=== PATIENT | female | born 1990 | race African-American/Black ===

== ENCOUNTER 2017-08-12 12:44 | Emergency (ER) | payer BC ==
[~2017-08-12] VITALS: Ht 165.1 cm; Wt 74.8 kg
--- NOTE | 2017-08-12 13:06 | Emergency Room Report ---
History of Present Illness General Chief Complaint: Laceration Source: Patient Present Illness HPI 27-year-old female presents to the emergency department for previously amputated left index finger. Patient states injury occurred at work in April. Patient states she is pain which is 7/10 in severity with scabbing. Patient states that she is here to be evaluated by plastic surgery for continued wound management. She has a history of previous attempted reattachment of the amputated digit which did not taken there was dehiscence which required surgical amputation at the PIP joint of the left index finger. Pt. has been having difficulty bending the affected finger. denies erythema, fevers , chills , or discharge. Allergies: Coded Allergies: No Known Allergies (Unverified , 08/12/17) Patient History Past Medical History: see triage record Past Surgical History: none Pertinent Family History: none Last Menstrual Period: 07/09/17 Now: No Reviewed Nursing Documentation: PMH: Agreed, PSxH: Agreed Nursing Documentation-PMH Past Medical History: No Stated History Review of Systems All Other Systems: negative except mentioned in HPI Physical Exam Vital Signs Date Time Temp Pulse Resp B/P (MAP) Pulse Ox O2 Delivery O2 Flow Rate FiO2 08/12/17 13:02 98.1 81 18 130/92 98 Room Air Sp02 EP Interpretation: reviewed, normal General Appearance: normal inspection, well appearing, no apparent distress, alert, non-toxic Head: normocephalic Respiratory: lungs clear, no respiratory distress Cardiovascular #1: regular rate, rhythm, normal capillary refill Musculoskeletal: other - limited ROM of the left index finger, finger has amputation at the PIP joint. ealed surgical amputation of the left index finger with eschar/scab noted, no evidence of infection at this time. Skin: normal color, warm/dry, well hydrated, wd healing/no infection noted Medical Decision Making PA Attestation Dr. sanders is my supervising Physician whom patient management has been discussed with. Diagnostic Impression: Primary Impression: Encounter for post surgical wound check ER Course 27-year-old female presents to the emergency department for previously amputated left index finger. Patient states injury occurred at work in April. Patient states she is pain which is 7/10 in severity with scabbing. Patient states that she is here to be evaluated by plastic surgery for continued wound management. She has a history of previous attempted reattachment of the amputated digit which did not taken there was dehiscence which required surgical amputation at the PIP joint of the left index finger. Pt. has been having difficulty bending the affected finger. denies erythema, fevers , chills , or discharge. Ddx considered but are not limited to tendon injury, cellulitis,dehiscence just to name a few. Vital signs: are WNL, pt. is afebrile H&PE are most consistent with: healed surgical amputation of the left index finger with eschar/scab noted, no evidence of infection at this time. ORDERS: none required at this time, the diagnosis is clinical ED INTERVENTIONS: - Pt. was evaluated and treated by Dr. Hamm --- Lidocaine 1% with EPI - ordered for Dr. Hamm --- Santyl Topical Cream - ordered for Dr. Hamm. DISCHARGE: At this time pt. is stable for d/c to home, To follow up with Plastic Surgeon Dr. Hamm in 1 week. . Will provide printed patient care instructions, and any necessary prescriptions. Care plan and follow up instructions have been discussed with the patient prior to discharge. Last Vital Signs Date Time Temp Pulse Resp B/P (MAP) Pulse Ox O2 Delivery O2 Flow Rate FiO2 08/12/17 13:02 98.1 81 18 130/92 98 Room Air Disposition: HOME, SELF-CARE Condition: Stable Patient Instructions: Wound Care Additional Instructions: Take medications as directed. Follow up with your Plastic Surgeon Return sooner to ED if new symptoms occur, or current symptoms become worse. - Please note that this Emergency Department Report was dictated using [employer] sales [employer] technology software, occasionally this can lead to erroneous entry secondary to interpretation by the dictation equipment. Paulina Roberts Aug 12, 2017 13:06
[2017-08-12] MEDS ORDERED: Lidocaine 1% 10mg/ml/Epi 0.005mg/ml 30ml vial INJ ONE (13:30)
--- NOTE | 2017-08-12 14:35 | Consultation ---
Consult Note Consult Note PLASTIC & RECONSTRUCTIVE SURGERY CONSULT NOTE cc: Right index finger wound after previous amputation HPI: Patient is a 27-year old woman who in March suffered a traumatic amputation of the right index finger. She underwent a replantation of her right index finger by an outside surgeon. Unfortunately, this replantation had failed. As a result, she suffers from a proximal stump wound. She presents to the ED at [facility] with pain, drainage, and limitation of range of motion. PMH: None PSH: Right index finger replantation Meds: None All: Unknown Social History: Unemployed since the accident ROS: All systems reviewed otherwise negative Physical Exam: Alert Non-distressed Cooperative Right hand warm and well perfused Right index finger with limitation of ROM at DIP and PIP + nercosis at distal tip of right index finger + parasthesias PROCEDURE: Irrigation and debridement with local wound care Tolerated well A/P: 27 year old s/p right index distal tip amputation s/p failed replantation, now with a proximal stump wound Rec: 1. Santyl QD 2. Dressing changes QD 3. Follow up with me on Thursday08/21/17 at 4PM Discussed with Sabi Howe M.D. Aug 12, 2017 14:35
[2017-08-12 15:27] VITALS: BP 130/92
--- NOTE | 2017-08-13 11:00 | Operative Note - Dictated ---
DATE OF OPERATION: 08/12/2017 PLASTIC SURGERY OPERATIVE REPORT SERVICE: Plastic and Reconstructive Surgery. PREOPERATIVE DIAGNOSIS: Right index finger amputation wound with necrotic tip, 2 cm x 2 cm. POSTOPERATIVE DIAGNOSIS: Right index finger amputation wound, with necrotic tip, 2 cm x 2 cm. PROCEDURE: 1. Digital nerve block of radial and ulnar digital nerve to the right index finger with 1% lidocaine and 1:100,000 epinephrine. 2. Examination under anesthesia. 3. Irrigation and debridement of skin, muscle, and bone. 4. Wound exploration for penetrating injury to rule out foreign body. 5. Removal of foreign body 6. Revision Amputation Right Index Finger 7. Local wound care with antibiotic ointment, sterile dressings. 8. Application of postoperative splint. SURGEON: Sabi Koch M.D. ESTIMATED BLOOD LOSS: 5 mL. COMPLICATIONS: None. SPECIMENS: None. TIME-OUT PERFORMED: Yes. INDICATION FOR PROCEDURE: The patient is a young woman, who was involved in a right index finger amputation several months ago after traumatic work accident. She has been suffering over the course of last several weeks of failed amputation of the distal aspect of the right index finger. As a result, she had distal tip necrosis of the proximal stump. She presented to the emergency room today with pain, drainage, as well as wound breakdown. It was felt she would benefit from wash out and dressing change. DESCRIPTION OF PROCEDURE: The patient's right index finger was prepped and draped in the sterile fashion. A 3 mL of 1% lidocaine with 1:100,000 epinephrine was injected along the path of the radial and ulnar digital nerves to the right index finger. Ten minutes allowed for infiltration of local anesthetic. Examination under anesthesia was performed. The patient had limited range of motion of the DIP and PIP joints. Irrigation was performed with 500 mL sterile saline. A #15 blade was used to perform sharp debridement of the necrotic tissue, bone, as well as skin edges. Wound exploration for penetrating injury was performed. A foreign body was identified. Removal of the foreign body was performed. Completion amputation was performed by removal of excess soft tissue. Local wound care was applied with antibiotic ointment, sterile dressing change. The patient was placed in a postoperative finger splint made of aluminum. The patient tolerated the procedure well without any complications. Sabi Koch MD DR: ANTHONY JOB#: [id number] CC: CONSUELO
== END 2017-08-12 15:00 | disposition home or self-care (01) ==
LOC: EMR 13:03
DX: Z47.81 Encounter for orthopedic aftercare following surgical amputation (principal); Z89.022 Acquired absence of left finger(s)
CPT/HCPCS: 99284